=== PATIENT | male | born 1985 | race Two or more races ===

== ENCOUNTER 2023-10-27 19:47 | Inpatient (IN) | payer OTHER ==
[~2023-10-27] VITALS: Ht 172.7 cm; Wt 79.5 kg
[2023-10-27] MEDS: BACITRACIN 0.9 GM PACKET OINTMENT TP ONE (20:09)
[2023-10-27] MEDS: PERTUSS(ACELL),DIPH,TET/PF 0.5 ML SYRINGE [ADULT] IM. ONE (20:10)
[2023-10-27 20:31] LABS: COVID AG,FIA SOURCE NASAL SWAB
[2023-10-27 20:35] LABS: BASOPHILS % (AUTO) 0.2 % (0.0-2.0); EOSINOPHILS % (AUTO) 0.5 % (1.0-6.0); HEMATOCRIT 47.1 % (41-53); HEMOGLOBIN 16.3 g/dL (13.5-17.5); MEAN CORPUSCULAR HEMOGLOBIN 30.4 pg (26.0-34.0); MEAN CORPUSCULAR HGB CONC 34.6 G/dL (31.0-37.0); MEAN CORPUSCULAR VOLUME 88 fL (80-100); MONOCYTES # (AUTO) 0.9 K/uL (0.1-1.0); MONOCYTES % (AUTO) 12.8 % (2.0-9.0); NEUTROPHILS # (AUTO) 5.3 K/uL (1.8-7.7); NEUTROPHILS % (AUTO) 72.5 % (40.0-70.0); PLATELET COUNT (AUTO) 155 K/uL (150-450); RED BLOOD CELL COUNT(AUTO) 5.35 MIL/uL (4.50-5.90); RED CELL DISTRIBUTION WIDTH 12.9 % (11.5-14.5); WHITE BLOOD COUNT (AUTO) 7.3 K/uL (4.5-11.0)
[2023-10-27 20:42] LABS: ANION GAP 16 mmol/L (8-16); CALCIUM, TOTAL 9.6 mg/dL (8.8-10.5); CARBON DIOXIDE 18 mmol/L (22-29); CHLORIDE 98 mmol/L (98-107); CREATININE 1.32 mg/dL (0.60-1.30); GLOMERULAR FILTR. RATE CALC > 60 mL/min (>60); GLUCOSE,RANDOM 66 mg/dL (70-110); POTASSIUM 3.8 mmol/L (3.5-5.1); SODIUM SERUM 132 mmol/L (136-145); UREA NITROGEN, BLOOD 15 mg/dL (7-18)
[2023-10-27 20:47] LABS: ALANINE AMINOTRANSFERASE 17 U/L (12-78); ALKALINE PHOSPHATASE 117 U/L (46-116); ASPARTATE AMINOTRANSFERASE 21 U/L (15-37); TOTAL PROTEIN, SERUM 8.1 g/dL (6.4-8.2)
[2023-10-27 20:59] LABS: ALCOHOL, BLOOD (SERUM) < 3 mg/dL (0-10)
[2023-10-27 21:02] LABS: SARS-COV2 (COVID) ANTIGEN,FIA Negative (Negative)
[2023-10-27 21:18] LABS: PH,URINE DRUG SCREEN 5.5 (5.0-8.0)
[2023-10-27 21:23] LABS: ALCOHOL, URINE DRUG SCREEN NEGATIVE (NEGATIVE); AMPHET/METH SCREEN,URINE NEGATIVE (NEGATIVE); BARBITURATE SCREEN, URINE NEGATIVE (NEGATIVE); BENZODIAZEPINES SCREEN,URINE NEGATIVE (NEGATIVE); CANNABINOID SCREEN,URINE NEGATIVE (NEGATIVE); COCAINE SCREEN,URINE NEGATIVE (NEGATIVE); METHADONE SCREEN, URINE NEGATIVE (NEGATIVE); OPIATE SCREEN,URINE NEGATIVE (NEGATIVE); PHENCYCLIDINE SCREEN,URINE NEGATIVE (NEGATIVE)
[2023-10-27] MEDS ORDERED: ONDANSETRON HCL 4 MG/2 ML VIAL IVP PRN (21:30)
[2023-10-27] MEDS: HEPARIN SODIUM,PORCINE 5,000 UNITS/ML VIAL SQ SCH (23:38)
[2023-10-27] MEDS: SODIUM CHLORIDE 0.9% 1,000 ML IV ONE (23:39)
[2023-10-27 23:48] VITALS: BP 128/72; PULSE 111; RESP 20; TEMP 98
[2023-10-28] MEDS: ACETAMINOPHEN 325 MG TABLET PO PRN (00:39)
[2023-10-28] MEDS: DEXTROSE 5%-0.9% SODIUM CHL 1,000 ML IV ONE ×2 (03:17→17:47)
[2023-10-28] MEDS: DEXTROSE 50%-WATER 25 GM/50 ML SYRINGE IVP ONE (03:22)
[2023-10-28 03:32] VITALS: BP 116/69; PULSE 87; RESP 18; TEMP 97.7
[2023-10-28 07:01] LABS: GLUCOMETER DEV NAME(LOC) 6S.2; GLUCOSE,POINT OF CARE 64 MG/DL (70-110)
[2023-10-28 07:24] LABS: BASOPHILS % (AUTO) 0.3 % (0.0-2.0); EOSINOPHILS % (AUTO) 0.4 % (1.0-6.0); HEMATOCRIT 42.6 % (41-53); LYMPHOCYTES # (AUTO) 1.9 K/uL (1.0-4.8); LYMPHOCYTES % (AUTO) 30.6 % (22.0-44.0); MEAN CORPUSCULAR HEMOGLOBIN 30.9 pg (26.0-34.0); MEAN CORPUSCULAR HGB CONC 35.2 G/dL (31.0-37.0); MEAN CORPUSCULAR VOLUME 88 fL (80-100); MONOCYTES # (AUTO) 1.1 K/uL (0.1-1.0); MONOCYTES % (AUTO) 16.9 % (2.0-9.0); NEUTROPHILS # (AUTO) 3.3 K/uL (1.8-7.7); NEUTROPHILS % (AUTO) 51.8 % (40.0-70.0); PLATELET COUNT (AUTO) 148 K/uL (150-450); RED BLOOD CELL COUNT(AUTO) 4.85 MIL/uL (4.50-5.90); RED CELL DISTRIBUTION WIDTH 12.8 % (11.5-14.5); WHITE BLOOD COUNT (AUTO) 6.3 K/uL (4.5-11.0)
[2023-10-28 07:52] LABS: ANION GAP 11 mmol/L (8-16); CARBON DIOXIDE 21 mmol/L (22-29); CHLORIDE 102 mmol/L (98-107); CREATININE 1.13 mg/dL (0.60-1.30); GLOMERULAR FILTR. RATE CALC > 60 mL/min (>60); GLUCOSE,RANDOM 69 mg/dL (70-110); POTASSIUM 3.6 mmol/L (3.5-5.1); SODIUM SERUM 134 mmol/L (136-145); UREA NITROGEN, BLOOD 11 mg/dL (7-18)
[2023-10-28] MEDS: DOCUSATE SODIUM 100 MG CAPSULE PO SCH (09:08)
[2023-10-28 10:23] VITALS: BP 121/4; PULSE 80; RESP 20; TEMP 97.3
[2023-10-28] MEDS: QUEtiapine FUMARATE 100 MG TABLET PO SCH (12:25)
[2023-10-28 20:10] VITALS: BP 124/75; PULSE 64; RESP 18; TEMP 98
[2023-10-28] MEDS: MIRTAZAPINE 30 MG TABLET PO SCH (21:07)
[2023-10-29 07:39] VITALS: BP 124/79; PULSE 104; RESP 18; TEMP 97.5
[2023-10-29] MEDS ORDERED: DEXTROSE 50%-WATER 25 GM/50 ML SYRINGE IVP PRN (12:00)
[2023-10-29] MEDS: DEXTROSE 5%-0.9% SODIUM CHL 1,000 ML IV ONE (13:15)
[2023-10-29 19:05] LABS: GLUCOMETER DEV NAME(LOC) 6S.2; GLUCOSE,POINT OF CARE 79 MG/DL (70-110)
[2023-10-29 20:26] VITALS: BP 123/59; PULSE 85; RESP 18; TEMP 97.6
[2023-10-29 22:31] LABS: GLUCOMETER DEV NAME(LOC) 6N.2B; GLUCOSE,POINT OF CARE 122 MG/DL (70-110)
[2023-10-30 04:27] VITALS: BP 124/89; PULSE 93; RESP 20; TEMP 97.5
[2023-10-30 06:56] LABS: GLUCOMETER DEV NAME(LOC) 6N.2B; GLUCOSE,POINT OF CARE 84 MG/DL (70-110)
[2023-10-30 10:32] VITALS: BP 132/82; PULSE 99; RESP 20; TEMP 98.1
[2023-10-30] MEDS ORDERED: MIRT-149 PO (13:03)
[2023-10-30] MEDS ORDERED: QUET100T PO (13:04)
[2023-10-30 14:31] LABS: GLUCOMETER DEV NAME(LOC) 4E.2; GLUCOSE,POINT OF CARE 91 MG/DL (70-110)
== END 2023-10-30 17:00 | DRG 605 ==
LOC: EMS 19:51 → 6S 22:53
PROVIDERS: ADMIT Internal Medicine; ATTEND Internal Medicine
DX: S51.812A Laceration without foreign body of left forearm, initial encounter (principal); E87.1 Hypo-osmolality and hyponatremia; N17.9 Acute kidney failure, unspecified; R45.851 Suicidal ideations; F33.2 Major depressive disorder, recurrent severe without psychotic features; Z59.00 Homelessness unspecified; Z20.822 Contact with and (suspected) exposure to COVID-19; E16.2 Hypoglycemia, unspecified; X78.8XXA Intentional self-harm by other sharp object, initial encounter; Y93.89 Activity, other specified; Y92.148 Other place in prison as the place of occurrence of the external cause; Y99.8 Other external cause status; Z79.899 Other long term (current) drug therapy
CPT/HCPCS: 80048; 80053; 80307; 82962; 83735; 84443; 85025; 90715; 99285; G0480; J1644; J7030; J7042